=== PATIENT | male | born 1990 | race Caucasian/White ===

== ENCOUNTER 2022-02-26 09:49 | Emergency (ER) | payer OTHER ==
[2022-02-26 10:00] VITALS: BP 125/80; PULSE 78; TEMP 98.2; BMI 29.7
[2022-02-26] MEDS ORDERED: LORATADINE 10 MG TABLET PO ONE (10:25)
[2022-02-26] MEDS ORDERED: predniSONE 20 MG TABLET (UD) PO ONE (10:25)
[2022-02-26] MEDS ORDERED: LORATADINE 10 MG TABLET ONE (10:26)
[2022-02-26] MEDS ORDERED: predniSONE 20 MG TABLET (UD) ONE (10:27)
== END 2022-02-26 10:40 | disposition home or self-care (01) ==
LOC: JER 09:49 → JERFT 09:49
DX: T63.441A Toxic effect of venom of bees, accidental (unintentional), initial encounter (principal)
CPT/HCPCS: 99283-25

== ENCOUNTER 2024-01-28 09:42 | Emergency (ER) | payer OTHER ==
[2024-01-28 09:56] VITALS: BP 132/80; PULSE 86; RESP 18; TEMP 98; BMI 33.6
[2024-01-28] MEDS ORDERED: ACETAMINOPHEN 500 MG TABLET (FP) ONE ×2 (10:52→10:59)
[2024-01-28] MEDS: ACETAMINOPHEN 500 MG TABLET (FP) PO ONE (11:01)
== END 2024-01-28 11:23 | disposition home or self-care (01) ==
LOC: JERFT 09:42
PROC: 2W3CX1Z Immobilization of Right Lower Arm using Splint (ICD-10-PCS; principal; 2024-01-28)
DX: S62.314A Displaced fracture of base of fourth metacarpal bone, right hand, initial encounter for closed fracture (principal); S62.316A Displaced fracture of base of fifth metacarpal bone, right hand, initial encounter for closed fracture; X50.1XXA Overexertion from prolonged static or awkward postures, initial encounter; Y99.0 Civilian activity done for income or pay
CPT/HCPCS: 73110-TC-RT-FY; 73130-TC-RT-FY; 99283-25